=== PATIENT | male | born 2000 | race Caucasian/White ===

== ENCOUNTER 2021-11-27 23:41 | Emergency (ER) | payer OTHER ==
[2021-11-27] MEDS: diphenhydrAMINE 50 MG/ML SDV IVPUSH ONE (23:55)
[2021-11-27] MEDS: fentaNYL 50 MCG/ML SDV IVPUSH ONE (23:56)
[2021-11-28] MEDS: Lactated Ringers 1,000 ML IV ONE (00:03)
[2021-11-28] MEDS: Sodium Chloride 0.9% 10 ML Syringe FLUSH PRN (00:04)
[2021-11-28 00:18] LABS: ANION GAP 13.5 mmol/L (5-15); CHLORIDE,CL 102 mmol/L (98-107); SODIUM,NA 138 mmol/L (136-145)
[2021-11-28 00:22] LABS: PTT,PARTIAL THROMBOPLSTIN TIME 27.4 SEC (20.5-30.9)
[2021-11-28] MEDS: Iopamidol 612 MG/ML 100 ML Bottle IVPUSH ONE (00:48)
[2021-11-28 01:07] LABS: BARBITURATE SCREEN,URINE NEGATIVE (NEGATIVE); BENZODIAZEPINES SCREEN,URINE NEGATIVE (NEGATIVE); BUPRENORPHINE SCREEN,URINE NEGATIVE (NEGATIVE); METHAMPHETAMINE SCREEN, URINE NEGATIVE (NEGATIVE); THC SCREEN,URINE 50 NG/ML POSITIVE (NEGATIVE)
[2021-11-28] MEDS: HYDROmorphone 0.5 MG/0.5 ML Syringe IV ONE (01:30)
[2021-11-28] MEDS: Orphenadrine 60 MG/2 ML Inj IV ONE (01:36)
[2021-11-28] MEDS: Orphenadrine 60 MG/2 ML Inj IM STA (01:36)
[2021-11-28] MEDS: Acetaminophen/HYDROcodone 325-10 MG Tab PO ONE (02:22)
[2021-11-28] MEDS: Take Home: Acetaminophen/HYDROcodone 325-10 MG, 5 Tab Pack PO ONE (02:22)
== END 2021-11-28 02:25 | disposition home or self-care (01) ==
LOC: VM.ED 23:41
DX: S22.42XA Multiple fractures of ribs, left side, initial encounter for closed fracture (principal); Z88.0 Allergy status to penicillin; W17.89XA Other fall from one level to another, initial encounter
CPT/HCPCS: 71045; 71260; 74177; 80053; 80305-QW; 80307; 81003; 83605; 83690; 85025; 85610; 85730; 96374; 96375; 99284; 99284-25; A9270-GY; J1170; J1200; J2360; J3010; J7120; Q9967